=== PATIENT | female | born 1955 | race American Indian/Alaskan Native ===

== ENCOUNTER 2016-10-18 17:27 | Emergency (ER) | payer OTHER ==
[2016-10-18 17:32] VITALS: BMI 45.4
--- NOTE | 2016-10-18 18:01 | C.PDOC ---
History Of Present Illness 61 y/o female presents to ED with complaints of waking up this morning with pain to top of shoulder worse with movement. denies any injury. 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 Patient denies numbness, weakness , tingling, fever, chills or any other complaints at this time. Time Seen by Provider: 10/18/16 17:54 Chief Complaint (Nursing): Upper Extremity Problem/Injury History Per: Patient History/Exam Limitations: no limitations Onset/Duration Of Symptoms: Hrs Current Symptoms Are (Timing): Still Present Past Medical History Reviewed: Historical Data, Nursing Documentation, Vital Signs Vital Signs: Last Vital Signs Temp 97.9 F 10/18/16 19:01 Pulse 90 10/18/16 19:01 Resp 18 10/18/16 19:01 BP 152/83 H 10/18/16 19:01 Pulse Ox 98 10/18/16 19:01 - Medical History PMH: Arthritis (knees), Back Problems (herniated disc), HTN Family History: States: Unknown Family Hx - Social History Hx Tobacco Use: No Hx Alcohol Use: No Hx Substance Use: No - Immunization History Hx Tetanus Toxoid Vaccination: No Hx Influenza Vaccination: No Hx Pneumococcal Vaccination: No Review Of Systems Constitutional: Negative for: Fever, Chills Musculoskeletal: Positive for: Shoulder Pain Neurological: Negative for: Weakness, Numbness Physical Exam - Physical Exam Appears: Other (Obese, Mildly Uncomfortable ) Skin: Normal Color, Warm Head: Atraumatic, Normacephalic Neck: Normal ROM, No Midline Cervical Tenderness Extremity: Tenderness (Proximal Shoulder tenderness, Almost full ROM ), Capillary Refill (<2 seconds), No Deformity, No Swelling Pulses: Left Radial: Normal, Right Radial: Normal Neurological/Psych: Oriented x3, Normal Motor, Normal Sensation, Normal Reflexes ED Course And Treatment O2 Sat by Pulse Oximetry: 95 (RA) Pulse Ox Interpretation: Normal Medical Decision Making Medical Decision Making: pt reports some decrease in pain after toradol. will d/c with ibuprofen and f/u orthpedics. Disposition Counseled Patient/Family Regarding: Diagnosis, Need For Followup, Rx Given - Disposition Referrals: Desmond Adkins III, MD [Staff Provider] - Disposition: HOME/ ROUTINE Disposition Time: 18:45 Condition: STABLE Additional Instructions: Take ibuprofen as prescribed (with food). Follow up with Dr Adkins- call tomorrow for an appointment. Try to move shoulder gently daily. Return to ER for worse pain. numbness, tingling, fever or other concerns. Apply cold compresses to shoulder several times a day. 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 - Scribe Statement The provider has reviewed the documentation as recorded by the Leighibbinu Carroll All medical record entries made by the Daisy were at my direction and personally dictated by me. I have reviewed the chart and agree that the record accurately reflects my personal performance of the history, physical exam, medical decision making, and the department course for this patient. I have also personally directed, reviewed, and agree with the discharge instructions and disposition.
[2016-10-18 19:01] VITALS: BP 152/83; PULSE 90; RESP 18; TEMP 97.9
[2016-10-19 11:42] VITALS: O2SAT 95
== END 2016-10-18 19:00 | disposition home or self-care (01) ==
LOC: C.ER 17:27
DX: M25.512 Pain in left shoulder (principal); I10 Essential (primary) hypertension
CPT/HCPCS: 96372; 99284; J1885

== ENCOUNTER 2017-10-02 21:36 | Emergency (ER) | payer OTHER ==
[2017-10-02 21:36] VITALS: BMI 45.4
[2017-10-02 22:00] VITALS: BP 150/87; PULSE 92; RESP 16; O2SAT 98
--- NOTE | 2017-10-02 22:50 | C.PDOC ---
History Of Present Illness 62 year old female presents to the ER with a complaint of pain to the right lower back that radiated to the right hip and right thigh. Patient states the pain is usually intermittent for months at a time, however, it has worsened over the past 2 days. Patient is on diclofenac by her PMD, but did not take it today as it makes her feel nauseous. Denies trauma, weakness, numbness, dysuria , hematuria, or incontinence. Time Seen by Provider: 10/02/17 22:32 Chief Complaint (Nursing): Hip Pain History Per: Patient History/Exam Limitations: no limitations Onset/Duration Of Symptoms: Days Current Symptoms Are (Timing): Still Present Recent travel outside of the [place]: No Past Medical History Reviewed: Historical Data, Nursing Documentation, Vital Signs Vital Signs: Last Vital Signs Temp 98 F 10/02/17 21:55 Pulse 92 H 10/02/17 21:55 Resp 16 10/02/17 21:55 BP 150/87 10/02/17 21:55 Pulse Ox 98 10/02/17 22:51 - Medical History PMH: Arthritis (knees), Back Problems, HTN Family History: States: Unknown Family Hx - Social History Hx Tobacco Use: No Hx Alcohol Use: Yes Hx Substance Use: No - Immunization History Hx Tetanus Toxoid Vaccination: No Hx Influenza Vaccination: No Hx Pneumococcal Vaccination: No Review Of Systems Gastrointestinal: Negative for: Abdominal Pain Genitourinary: Negative for: Dysuria, Incontinence, Hematuria Musculoskeletal: Positive for: Hand Pain, Leg Pain, Other (right hip pain) Neurological: Negative for: Weakness, Numbness Physical Exam - Physical Exam Appears: Non-toxic Skin: Normal Color, Warm, Dry Head: Atraumatic, Normacephalic Eye(s): bilateral: Normal Inspection Back: No CVA Tenderness, Paraspinal Tenderness (Right lumbar) Extremity: Normal ROM (x4), No Tenderness (Hip), No Deformity, No Swelling Neurological/Psych: Oriented x3, Normal Speech, Normal Motor, Normal Sensation Gait: Steady ED Course And Treatment O2 Sat by Pulse Oximetry: 98 (room air) Pulse Ox Interpretation: Normal Progress Note: Patient is ambulatory in the ER without any pain or difficulty, patient advised to continue taking medication prescribed by PMD or take OTC NSAIDs and follow up with PMD for further evaluation. 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 - Scribe Statement The provider has reviewed the documentation as recorded by the Scribbinu Cochran All medical record entries made by the Leighibbinu were at my direction and personally dictated by me. I have reviewed the chart and agree that the record accurately reflects my personal performance of the history, physical exam, medical decision making, and the department course for this patient. I have also personally directed, reviewed, and agree with the discharge instructions and disposition.
[2017-10-02 22:51] VITALS: TEMP 98
== END 2017-10-02 23:00 | disposition home or self-care (01) ==
LOC: C.ER 21:36
DX: M54.30 Sciatica, unspecified side (principal)

== ENCOUNTER 2017-10-04 12:19 | Emergency (ER) | payer OTHER ==
[2017-10-04 12:33] VITALS: BMI 43.4
[2017-10-04 12:41] VITALS: RESP 18
--- NOTE | 2017-10-04 13:07 | C.PDOC ---
History Of Present Illness 62-year-old female presents to the ED for evaluation of right-sided hip and flank pain which has worsened since the past two days. Patient states her pain radiates to her right groin area and is worse with movement. 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 Patient was evaluated in this ED on 10/02 for same complaints and was discharged with instructions to take NSAIDS and apply ice. Patient has not taken NSAIDS and applied heat to the area. Patient was seen by pain managment yesterday, who recommended spinal injections, but patient deferred. Patient had had multiple ED visits for the same. Patient's daughter, who is at bedside is requesting a CT A/P. Patient denies fever, chills, extremity numbness/weakness. Time Seen by Provider: 10/04/17 12:41 Chief Complaint (Nursing): Abdominal Pain History Per: Patient History/Exam Limitations: no limitations Onset/Duration Of Symptoms: Days Current Symptoms Are (Timing): Still Present Radiation Of Pain To:: None Quality Of Discomfort: "Pain" Exacerbating Factors: Movement Additional History Per: Patient Abnormal Vaginal Bleeding: No Past Medical History Reviewed: Historical Data, Nursing Documentation, Vital Signs Vital Signs: Last Vital Signs Temp 98.6 F 10/04/17 15:16 Pulse 74 10/04/17 15:16 Resp 18 10/04/17 15:16 BP 130/77 10/04/17 15:16 Pulse Ox 99 10/04/17 15:16 - Medical History PMH: Arthritis (knees), Back Problems, HTN Surgical History: No Surg Hx Family History: States: Unknown Family Hx - Social History Hx Tobacco Use: No Hx Alcohol Use: Yes Hx Substance Use: No - Immunization History Hx Tetanus Toxoid Vaccination: No Hx Influenza Vaccination: No Hx Pneumococcal Vaccination: No Review Of Systems Constitutional: Negative for: Fever, Chills Musculoskeletal: Positive for: Other (right hip and right flank pain ) Physical Exam - Physical Exam Appears: Non-toxic, No Acute Distress, Other (morbidly obese ) Skin: Normal Color, Warm, Dry Head: Atraumatic, Normacephalic Eye(s): bilateral: Normal Inspection Oral Mucosa: Moist Neck: Supple Chest: Symmetrical, No Deformity, No Tenderness Cardiovascular: Rhythm Regular, No Murmur Respiratory: Normal Breath Sounds, No Rales, No Rhonchi, No Wheezing Gastrointestinal/Abdominal: Tenderness (right abdominal wall ), No Other (Mckenzie 's signs, McBurney's point tenderness ) Back: Paraspinal Tenderness (right, lumbar ) Extremity: Normal ROM (hip ), No Tenderness (hip ), Capillary Refill (less than 2 seconds ) Neurological/Psych: Oriented x3, Normal Speech, Normal Cognition ED Course And Treatment - Laboratory Results Result Diagrams: 10/04/17 13:16 10/04/17 13:16 ECG: Interpreted By Me ECG Rhythm: Sinus Rhythm ECG Interpretation: Normal Rate From EC O2 Sat by Pulse Oximetry: 98 (on RA) Pulse Ox Interpretation: Normal Progress Note: Bloodwork, urinalysis, CT A/P, CXR, EKG ordered and reviewed. Toradol IVP, ice pack to R flank muscle strain area administered. 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 Disposition Doctor Will See Patient In The: Office Counseled Patient/Family Regarding: Studies Performed, Diagnosis - Disposition Disposition: HOME/ ROUTINE Disposition Time: 15:54 Condition: GOOD Forms: [facility] (Georgian) - Clinical Impression Clinical Impression: Right sided abdominal pain, Low back strain - Scribe Statement The provider has reviewed the documentation as recorded by the Scribe (Dary Prabhakar) Provider Attestation: All medical record entries made by the Scribe were at my direction and personally dictated by me. I have reviewed the chart and agree that the record accurately reflects my personal performance of the history, physical exam, medical decision making, and the department course for this patient. I have also personally directed, reviewed, and agree with the discharge instructions and disposition.
--- NOTE | 2017-10-04 13:14 | RAD ---
HISTORY: adm COMPARISON: 03/21/2026. FINDINGS: LUNGS: The lungs are well inflated and clear. No pleural effusion or pneumothorax. PLEURA: No significant pleural effusion identified, no pneumothorax apparent. CARDIOVASCULAR: Normal. OSSEOUS STRUCTURES: No significant abnormalities. VISUALIZED UPPER ABDOMEN: Normal. OTHER FINDINGS: None. IMPRESSION: No active pulmonary disease.
[2017-10-04 13:21] LABS: BASO # 0.1 K/uL (0.0-0.2); EOS # 0.1 K/uL (0.0-0.7); EOS % 1.1 % (0.0-4.0); HEMOGLOBIN 12.7 g/dL (11.0-16.0); LYMPH # 2.7 K/uL (1.0-4.3); LYMPH % 26.2 % (20.0-40.0); MEAN CELL VOLUME 84.9 fL (81.0-99.0); MEAN CORPUSCULAR HEMOGLOBIN 28.2 pg (27.0-31.0); MEAN CORPUSCULAR HGB CONC 33.2 g/dL (33.0-37.0); MEAN PLATELET VOLUME 9.3 fL (7.2-11.7); MONO # 0.7 K/uL (0.0-0.8); MONO % 7.1 % (0.0-10.0); NEUT # 6.6 K/uL (1.8-7.0); NEUT % 64.6 % (50.0-75.0); RBC 4.51 Mil/uL (3.80-5.20); RED CELL DISTRIBUTION WIDTH 13.8 % (11.5-14.5); WHITE BLOOD COUNT 10.3 K/uL (4.8-10.8)
[2017-10-04 13:28] LABS: SQUAMOUS EPITHIAL 4 /hpf (0-5); URINE BILIRUBIN NEGATIVE (NEGATIVE); URINE BLOOD NEGATIVE (NEGATIVE); URINE CLARITY Clear (Clear); URINE COLOR Yellow (YELLOW); URINE GLUCOSE (UA) NORMAL (Normal); URINE LEUKOCYTE ESTERASE NEG Leu/uL (Negative); URINE PROTEIN NEGATIVE (NEGATIVE); URINE UROBILINOGEN NORMAL mg/dL (0.2-1.0)
[2017-10-04 13:54] LABS: B-TYPE NATRIURETIC PEPTIDE 161 pg/mL (0-900)
[2017-10-04 13:56] LABS: ALB/GLOB RATIO 1.1 (1.0-2.1); ALBUMIN 4.5 g/dL (3.5-5.0); ALT/SGPT 25 U/L (9-52); AST/SGOT 36 U/L (14-36); BLOOD UREA NITROGEN 10 mg/dL (7-17); CALCIUM 9.4 mg/dl (8.6-10.4); GFR AFRICAN-AMERICAN > 60; GFR NON-AFRICAN AMERICAN > 60; LIPASE 106 U/L (23-300)
[2017-10-04 15:17] VITALS: BP 130/77; PULSE 74; TEMP 98.6
--- NOTE | 2017-10-04 15:48 | CT ---
PROCEDURE: CT Abdomen and Pelvis with contrast HISTORY: abd pain COMPARISON: None. TECHNIQUE: Contrast dose: 100 mL Visipaque 320 Radiation dose: Total exam DLP = 1138.28 mGy-cm. This CT exam was performed using one or more of the following dose reduction techniques: Automated exposure control, adjustment of the mA and/or kV according to patient size, and/or use of iterative reconstruction technique. FINDINGS: LOWER THORAX: Unremarkable. LIVER: Unremarkable. No gross lesion or ductal dilatation. GALLBLADDER AND BILE DUCTS: Unremarkable. PANCREAS: Unremarkable. No gross lesion or ductal dilatation. SPLEEN: Unremarkable. ADRENALS: Unremarkable. No mass. 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 No renal mass, calculus or hydronephrosis peer no hydroureter or ureteral calculus. VASCULATURE: Unremarkable. No aortic aneurysm. BOWEL: Unremarkable. No obstruction. No gross mural thickening. APPENDIX: Normal appendix. PERITONEUM: Unremarkable. No free fluid. No free air. LYMPH NODES: Unremarkable. No enlarged lymph nodes. BLADDER: Suboptimally distended. Grossly normal. REPRODUCTIVE: Normal postmenopausal uterus. Left ovarian cyst, 3.8 cm. Correlate with transvaginal pelvic ultrasound examination. BONES: No acute fracture. OTHER FINDINGS: None. IMPRESSION: 3.8 cm left ovarian cyst. Correlate with transvaginal pelvic ultrasound examination. 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 No other significant abnormality identified.
[2017-10-04 15:55] VITALS: O2SAT 98
--- NOTE | 2017-10-07 16:40 | CARD ---
APPROVED REPORT EKG Measurement Heart [id number] <Conclusion> Normal sinus rhythm with sinus arrhythmia Normal ECG
== END 2017-10-04 16:12 | disposition home or self-care (01) ==
LOC: C.ER 12:19
DX: R10.9 Unspecified abdominal pain (principal); S39.012A Strain of muscle, fascia and tendon of lower back, initial encounter; X50.9XXA Other and unspecified overexertion or strenuous movements or postures, initial encounter; Y99.0 Civilian activity done for income or pay; I10 Essential (primary) hypertension
CPT/HCPCS: 71045; 74177; 80053; 81001; 83690; 83880; 84484; 85025; 96374; 99285; J1885

== ENCOUNTER 2017-12-27 17:46 | Emergency (ER) | payer OTHER ==
[2017-12-27 17:46] VITALS: BMI 43.4
--- NOTE | 2017-12-27 18:55 | C.PDOC ---
History Of Present Illness 62 y/o female, with PMHx of HTN, presents to ED for evaluation of intermittent episodes of chest pain today. Notes initial episode developed while stepping off of the elevator. Notes pain is worse with movement and occasionally radiates to the back. Pt reports being seen by Dr. Neely yesterday. Otherwise , denies cough, fever, night sweats, leg swelling, shortness of breath, or any other associated symptoms at this time. Time Seen by Provider: 12/27/17 18:55 Chief Complaint (Nursing): Chest Pain History Per: Patient History/Exam Limitations: no limitations Past Medical History Reviewed: Historical Data, Nursing Documentation, Vital Signs Vital Signs: Last Vital Signs Temp 98.8 F 12/27/17 17:56 Pulse 78 12/27/17 20:17 Resp 19 12/27/17 20:17 BP 150/79 12/27/17 20:17 Pulse Ox 100 12/27/17 21:25 - Medical History PMH: Arthritis (knees), Back Problems, HTN Family History: States: Unknown Family Hx - Social History Hx Tobacco Use: No Hx Alcohol Use: No Hx Substance Use: No - Immunization History Hx Tetanus Toxoid Vaccination: No Hx Influenza Vaccination: No Hx Pneumococcal Vaccination: No Review Of Systems Except As Marked, All Systems Reviewed And Found Negative. Constitutional: Negative for: Fever, Chills Cardiovascular: Positive for: Chest Pain. Negative for: Palpitations, Edema, Light Headedness Respiratory: Negative for: Cough, Shortness of Breath Gastrointestinal: Negative for: Nausea, Vomiting Physical Exam - Physical Exam Appears: Non-toxic, No Acute Distress Skin: Normal Color, Warm, Dry Head: Atraumatic, Normacephalic Eye(s): bilateral: Normal Inspection Oral Mucosa: Moist Neck: Normal ROM, Supple Chest: Symmetrical Cardiovascular: Rhythm Regular Respiratory: Normal Breath Sounds, No Rales, No Rhonchi, No Wheezing Gastrointestinal/Abdominal: Soft, No Tenderness Extremity: Normal ROM, No Pedal Edema Neurological/Psych: Oriented x3, Normal Speech ED Course And Treatment - Laboratory Results Result Diagrams: 12/27/17 19:15 12/27/17 19:15 ECG: Interpreted By Me, Viewed By Me ECG Rhythm: Sinus Rhythm ECG Interpretation: No Acute Changes Interpretation Of ECG: No STEMI. Rate From EC O2 Sat by Pulse Oximetry: 100 Pulse Ox Interpretation: Normal Medical Decision Making Medical Decision Making: Plan: Blood work EKG CXR Disposition - Disposition Disposition Time: 21:00 Condition: GOOD Forms: [facility] ([place]ican) - Clinical Impression Clinical Impression: Chest pain - Scribe Statement The provider has reviewed the documentation as recorded by the Scribe KP All medical record entries made by the Scribe were at my direction and personally dictated by me. I have reviewed the chart and agree that the record accurately reflects my personal performance of the history, physical exam, medical decision making, and the department course for this patient. I have also personally directed, reviewed, and agree with the discharge instructions and disposition.
[2017-12-27 19:19] LABS: BASO # 0.1 K/uL (0.0-0.2); BASO % 1.1 % (0.0-2.0); EOS # 0.2 K/uL (0.0-0.7); EOS % 1.8 % (0.0-4.0); HEMOGLOBIN 12.5 g/dL (11.0-16.0); LYMPH % 26.7 % (20.0-40.0); MEAN CELL VOLUME 84.7 fL (81.0-99.0); MEAN CORPUSCULAR HEMOGLOBIN 28.1 pg (27.0-31.0); MEAN CORPUSCULAR HGB CONC 33.1 g/dL (33.0-37.0); MEAN PLATELET VOLUME 8.6 fL (7.2-11.7); MONO # 0.7 K/uL (0.0-0.8); MONO % 6.6 % (0.0-10.0); NEUT # 7.1 K/uL (1.8-7.0); NEUT % 63.8 % (50.0-75.0); RBC 4.46 Mil/uL (3.80-5.20); RED CELL DISTRIBUTION WIDTH 14.2 % (11.5-14.5); WHITE BLOOD COUNT 11.1 K/uL (4.8-10.8)
[2017-12-27 19:30] LABS: ALB/GLOB RATIO 1.1 (1.0-2.1); ALBUMIN 4.5 g/dL (3.5-5.0); CALCIUM 9.2 mg/dl (8.6-10.4); GFR NON-AFRICAN AMERICAN > 60; LIPASE 178 U/L (23-300)
[2017-12-27 19:35] LABS: ALT/SGPT 32 U/L (9-52); AST/SGOT 30 U/L (14-36); BLOOD UREA NITROGEN 13 mg/dL (7-17)
[2017-12-27 21:46] VITALS: BP 155/89; PULSE 82; RESP 18; TEMP 98.2
--- NOTE | 2017-12-28 11:51 | RAD ---
Chest x-ray two views History: Chest pain. Comparison: 10/04/2017 Findings: No focal infiltrate or effusion. Heart size within normal limits. Calcification at the aortic knob. Biapical pleural thickening. Degenerative changes in the spine and shoulders. Impression: No focal infiltrate or effusion. Heart size within normal limits. Calcification at the aortic knob. Biapical pleural thickening.
[2017-12-28 21:09] VITALS: O2SAT 100
== END 2017-12-27 21:46 | disposition home or self-care (01) ==
LOC: C.ER 17:46
DX: R07.9 Chest pain, unspecified (principal); I10 Essential (primary) hypertension